=== PATIENT | male | born 1945 | race Caucasian/White ===

== ENCOUNTER 2025-04-21 22:30 | Emergency (ER) | payer OTHER, SELFPAY ==
[2025-04-21] VITALS (12 sets, daily range): BP systolic 131–161; BP diastolic 78–90; PULSE 94–104; TEMP 36.7; O2SAT 96–99; BMI 28.2
--- NOTE | 2025-04-21 22:51 | ECG_ITS ---
The [facility] Test Date: 2025-04-21 Pat Name: TRACIE CUNNINGHAM Department: Room: - Gender: Male Youth Worker: : 1945 Requested By: [id number] Order Number: [id number] Reading MD: ANTIONE ARAYA M.D. Measurements Intervals [place] Rate: 98 P: 60 ND: 156 QRS: 49 QRSD: 70 T: 43 QT: 330 QTc: 385 Interpretive Statements 1100 Sinus rhythm 8102 Low QRS voltage in chest leads 9120 atypical ECG No previous ECG available for comparison Electronically Signed On 04-22-2025 11:10:45 EDT by ANTIONE ARAYA M.D.
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
[2025-04-21 22:57] LABS: Hematocrit 45.2 % (42.0-54.0); Hemoglobin 15.8 g/dL (14.0-18.0); Immature Granulocytes Abs Auto 0.02 10^3/uL (0.00-0.03); Immature Granulocytes Pct Auto 0.2 % (0.0-0.5); Lymphocytes Absolute Auto 0.8 10^3/uL (1.2-3.8); Mean Corpuscular HGB Conc 35.0 g/dL (29.9-35.2); Mean Corpuscular Hemoglobin 31.2 pg (25.9-34.0); Mean Corpuscular Volume 89.3 fL (80.0-94.0); Platelet Count 198 10^3/uL (150-450); Red Blood Count 5.06 10^6/uL (4.70-6.10); White Blood Count 8.9 10^3/uL (4.0-11.0)
[2025-04-21 23:51] LABS: Alanine Aminotransferase 23 U/L (16-63); Albumin Globulin Ratio 1.2; Albumin Level 4.4 g/dL (3.4-5.0); Alkaline Phosphatase 171 U/L (46-116); Anion Gap 16.2; Aspartate Amino Transferase 19 U/L (15-37); Blood Urea Nitrogen 12.0 mg/dL (7.0-18.0); Calcium 9.8 mg/dL (8.5-10.1); Carbon Dioxide 26.3 mmol/L (21.0-32.0); Chloride 104 mmol/L (98-107); Estimated GFR (African America >60 (>=60 mL/min/1.73m^2); Estimated GFR (Non-African Ame >60 (>=60 mL/min/1.73m^2); Globulin 3.8 g/dL; Glucose 135 mg/dL (74-106); Potassium 3.5 mmol/L (3.5-5.1); Sodium 143 mmol/L (136-145); Total Protein 8.2 g/dL (6.4-8.2)
[2025-04-22] VITALS (13 sets, daily range): BP systolic 125–162; BP diastolic 74–81; PULSE 88–108; O2SAT 95–97
[2025-04-22 00:17] LABS: Glucose Urine UA NEGATIVE (NEGATIVE)
[2025-04-22 00:26] LABS: Cannabinoid Screen Urine NEGATIVE (NEGATIVE); Methamphetamines Screen Urine NEGATIVE (NEGATIVE); Tricyclic Antidepressant Urine NEGATIVE (NEGATIVE)
[2025-04-22 00:34] LABS: Cast Seen? SEEN #/LPF (NONE SEEN); Crystals Seen? None Seen #/HPF (None Seen); Urine Culture Indicated NO
== END 2025-04-22 02:10 | disposition home or self-care (01) ==
PROVIDERS: Emergency Provider Emergency Medicine
DX: R41.0 Disorientation, unspecified (principal)
CPT/HCPCS: 36415; 70450; 71045; 80048; 80076; 80307; 80320; 81001; 84484; 85025; 93005; 99285